=== PATIENT | female | born 1985 | race Caucasian/White ===

== ENCOUNTER 2023-12-22 17:14 | Observation (INO) ==
--- NOTE | 2023-12-22 17:20 | ED Triage Note ---
Date of Service December 22, 2023 Provider in Triage Author: Miah Holm History of Present Illness This patient was briefly evaluated while in triage. An abbreviated physical exam was performed. This patient is a 38-year-old Female who presents to the ED for evaluation of: Chest heavy, and pain in back under shoulder blade. Started over the past week and has aortic aneurysm. Dyspnea as well. Physical Exam GENERAL: 38 year old female. In no acute distress. SKIN: No lesions or rashes. HEART: Regular rate and rhythm. LUNGS: Clear to auscultation. NEURO: Alert and oriented. No deficits. MUSCULOSKELETAL: No deformities to inspection of the extremities. PSYCH: Patient is pleasant and answers all questions appropriately. Initial orders for labs and / or imaging were placed and patient was placed in the waiting area until a bed is available. Please see further documentation for the full ED course.
--- NOTE | 2023-12-22 19:18 | Emergency Department Note ---
History of Present Illness General Chief complaint: Cardiac Assessment Stated complaint: HEAVY CHEST/PAIN, SOB Time Seen by Provider: 12/22/23 19:09 History of Present Illness Maximum Pain Intensity: 4 This is a 38-year-old female that presents to the emergency department via private vehicle with complaints of "heaviness in the chest,/pain into back, shortness of breath". Patient notes that for the past week she has been experiencing pain in her chest that radiates to her back. It is worse with exertion. She notes an outpatient echocardiogram performed in [place] this past Friday. She states she was diagnosed with an aneurysm but is unable to provide any further details. She notes about 5 years ago history of intubation in [place] secondary to septic shock. No history of PE. She notes that the pain is central and about 4 out of 10 at the present time. Home Medications Medication Instructions Recorded Confirmed Type carvedilol 6.25 mg tablet 6.25 mg PO BID 12/22/23 12/22/23 History cholecalciferol (vitamin D3) 25 1,000 mcg PO DAILY 12/22/23 12/22/23 History mcg (1,000 unit) capsule (Vitamin D3) ferrous sulfate 325 mg (65 mg 325 mg PO BID 12/22/23 12/23/23 History iron) tablet (FeroSul) fluticasone furoate 100 1 inh inhalation DAILY 12/22/23 12/22/23 History mcg-vilanterol 25 mcg/dose inhalation powder folic acid 1 mg tablet 1 mg PO DAILY 12/22/23 12/22/23 History melatonin 10 mg tablet 10 mg PO DAILY 12/22/23 12/22/23 History sertraline 50 mg tablet 50 mg PO DAILY 12/22/23 12/22/23 History albuterol sulfate 2.5 mg/3 mL 2.5 mg continuous nebulization Q4 12/23/23 12/23/23 History (0.083 %) solution for nebulization PRN Wheezing cyanocobalamin (vitamin B-12) 1,000 mcg IM MONTHLY 12/23/23 12/23/23 History 1,000 mcg/mL injection solution furosemide 20 mg tablet 20 mg PO DAILY PRN Edema 12/23/23 12/23/23 History magnesium oxide 400 mg (241.3 mg 400 mg PO DAILY 12/23/23 12/23/23 History magnesium) tablet pantoprazole 40 mg tablet,delayed 40 mg PO DAILY 12/23/23 12/23/23 History release potassium chloride 20 mEq 20 meq PO DAILY 12/23/23 12/23/23 History tablet,extended release(part/cryst) spironolactone 25 mg tablet 25 mg PO DAILY 12/23/23 12/23/23 History Allergies Allergy/AdvReac Type Severity Reaction Status Date / Time No Known Allergies Allergy Unverified 12/23/23 09:19 Past Med/Surg History Medical History (Updated 12/23/23 @ 12:17 by Norberto Mccall PA-C) HTN (hypertension) History of anemia Lymphedema R leg Surgical History (Updated 12/23/23 @ 04:00 by Julia Cano DO) H/O gastric bypass Social History Smoking Status: Never smoker Hx Alcohol Use: Yes Hx Substance Use: No Preferred Language: [place] Communication Ability: Effective Functional Manager Required: No Beliefs That Will Affect Care: None Current Living Situation: Family Feels Safe at Home: Yes Safety Concerns: Feels Safe At This Time Assistive Devices: None Review of Systems A total of 10 systems reviewed and were otherwise negative Physical Exam Vital Signs Vital Signs - 24 hr 12/22/23 17:19 12/22/23 19:05 12/22/23 19:05 Temperature 36.7 C Temperature Source Temporal Artery Scan Pulse Rate 84 Pulse Rate [Apical] 73 Pulse Rate from SpO2 Sensor Pulse Rhythm Regular Pulse Rhythm [Apical] Regular Pulse Strength Normal Pulse Strength [Apical] Normal Respiratory Rate 20 20 Respiratory Effort / Characteristics Non-Labored Spontaneous Non-Labored Spontaneous Respiratory Depth Normal Normal Respiratory Pattern Regular Regular Blood Pressure 157/108 H Blood Pressure [Right Arm] 145/117 H Blood Pressure Mean 124 Blood Pressure Mean [Right Arm] 126 Blood Pressure Position Sitting Pulse Oximetry 99 91 98 Oxygen Delivery Method Room Air Room Air Room Air Sepsis Recent Fever Within 48 Hours No Sepsis New/Unexplained Change in Mental Status No Sepsis Action Taken by Nursing No Action Required 12/22/23 19:10 12/22/23 20:10 12/22/23 20:20 Temperature Temperature Source Pulse Rate 73 72 71 Pulse Rate [Apical] Pulse Rate from SpO2 Sensor 73 68 Pulse Rhythm Regular Pulse Rhythm [Apical] Pulse Strength Pulse Strength [Apical] Respiratory Rate 19 21 20 Respiratory Effort / Characteristics Respiratory Depth Respiratory Pattern Blood Pressure Blood Pressure [Right Arm] Blood Pressure Mean Blood Pressure Mean [Right Arm] Blood Pressure Position Pulse Oximetry 97 96 95 Oxygen Delivery Method Room Air Sepsis Recent Fever Within 48 Hours Sepsis New/Unexplained Change in Mental Status Sepsis Action Taken by Nursing 12/22/23 20:30 12/22/23 20:32 12/22/23 20:32 Temperature Temperature Source Pulse Rate 72 76 Pulse Rate [Apical] Pulse Rate from SpO2 Sensor 73 74 Pulse Rhythm Pulse Rhythm [Apical] Pulse Strength Pulse Strength [Apical] Respiratory Rate 25 H 19 Respiratory Effort / Characteristics Respiratory Depth Respiratory Pattern Blood Pressure 114/75 Blood Pressure [Right Arm] Blood Pressure Mean 79 Blood Pressure Mean [Right Arm] Blood Pressure Position Pulse Oximetry 97 96 Oxygen Delivery Method Sepsis Recent Fever Within 48 Hours Sepsis New/Unexplained Change in Mental Status Sepsis Action Taken by Nursing 12/22/23 20:40 12/22/23 21:38 12/22/23 21:39 Temperature Temperature Source Pulse Rate 70 82 Pulse Rate [Apical] Pulse Rate from SpO2 Sensor 70 75 Pulse Rhythm Pulse Rhythm [Apical] Pulse Strength Pulse Strength [Apical] Respiratory Rate 18 12 Respiratory Effort / Characteristics Respiratory Depth Respiratory Pattern Blood Pressure 142/105 H 142/105 H Blood Pressure [Right Arm] Blood Pressure Mean 117 113 Blood Pressure Mean [Right Arm] Blood Pressure Position Pulse Oximetry 94 95 Oxygen Delivery Method Sepsis Recent Fever Within 48 Hours Sepsis New/Unexplained Change in Mental Status Sepsis Action Taken by Nursing 12/22/23 21:39 12/22/23 21:40 12/22/23 21:49 Temperature Temperature Source Pulse Rate 74 74 71 Pulse Rate [Apical] Pulse Rate from SpO2 Sensor 75 75 Pulse Rhythm Pulse Rhythm [Apical] Pulse Strength Pulse Strength [Apical] Respiratory Rate 24 16 Respiratory Effort / Characteristics Respiratory Depth Respiratory Pattern Blood Pressure Blood Pressure [Right Arm] Blood Pressure Mean Blood Pressure Mean [Right Arm] Blood Pressure Position Pulse Oximetry 95 95 Oxygen Delivery Method Sepsis Recent Fever Within 48 Hours Sepsis New/Unexplained Change in Mental Status Sepsis Action Taken by Nursing 12/22/23 21:50 12/22/23 22:00 12/22/23 22:00 Temperature Temperature Source Pulse Rate 72 71 Pulse Rate [Apical] Pulse Rate from SpO2 Sensor 72 72 Pulse Rhythm Pulse Rhythm [Apical] Pulse Strength Pulse Strength [Apical] Respiratory Rate 17 19 Respiratory Effort / Characteristics Respiratory Depth Respiratory Pattern Blood Pressure 96/61 L Blood Pressure [Right Arm] Blood Pressure Mean 75 Blood Pressure Mean [Right Arm] Blood Pressure Position Pulse Oximetry 93 96 Oxygen Delivery Method Sepsis Recent Fever Within 48 Hours Sepsis New/Unexplained Change in Mental Status Sepsis Action Taken by Nursing 12/22/23 22:10 12/22/23 22:20 12/22/23 22:30 Temperature Temperature Source Pulse Rate 76 77 Pulse Rate [Apical] Pulse Rate from SpO2 Sensor 76 75 Pulse Rhythm Pulse Rhythm [Apical] Pulse Strength Pulse Strength [Apical] Respiratory Rate 20 19 Respiratory Effort / Characteristics Respiratory Depth Respiratory Pattern Blood Pressure 122/78 Blood Pressure [Right Arm] Blood Pressure Mean 87 Blood Pressure Mean [Right Arm] Blood Pressure Position Pulse Oximetry 93 94 Oxygen Delivery Method Sepsis Recent Fever Within 48 Hours Sepsis New/Unexplained Change in Mental Status Sepsis Action Taken by Nursing 12/22/23 22:30 12/22/23 22:40 12/22/23 22:50 Temperature Temperature Source Pulse Rate 79 77 78 Pulse Rate [Apical] Pulse Rate from SpO2 Sensor 80 76 78 Pulse Rhythm Pulse Rhythm [Apical] Pulse Strength Pulse Strength [Apical] Respiratory Rate 19 17 19 Respiratory Effort / Characteristics Respiratory Depth Respiratory Pattern Blood Pressure Blood Pressure [Right Arm] Blood Pressure Mean Blood Pressure Mean [Right Arm] Blood Pressure Position Pulse Oximetry 94 95 93 Oxygen Delivery Method Sepsis Recent Fever Within 48 Hours Sepsis New/Unexplained Change in Mental Status Sepsis Action Taken by Nursing 12/22/23 23:00 12/22/23 23:00 12/22/23 23:30 Temperature Temperature Source Pulse Rate 77 74 Pulse Rate [Apical] Pulse Rate from SpO2 Sensor Pulse Rhythm Pulse Rhythm [Apical] Pulse Strength Pulse Strength [Apical] Respiratory Rate 18 16 Respiratory Effort / Characteristics Respiratory Depth Respiratory Pattern Blood Pressure 132/88 133/74 Blood Pressure [Right Arm] Blood Pressure Mean 105 93 Blood Pressure Mean [Right Arm] Blood Pressure Position Pulse Oximetry Oxygen Delivery Method Sepsis Recent Fever Within 48 Hours Sepsis New/Unexplained Change in Mental Status Sepsis Action Taken by Nursing VITAL SIGNS - Vital signs and nursing notes were reviewed. Hypertensive, otherwise stable. GENERAL -38-year-old female appearing her stated age who is in no acute distress. Communicates well with provider and answers questions appropriately. SKIN - Without rashes. HEAD - NC/AT. EYES - PERRL with EOMI bilaterally. Sclera anicteric. Palpebral conjunctiva pink and moist with no injection noted. EARS - No deformities of external structures noted on gross examination bilaterally. NOSE - Midline and without cyanosis. MOUTH/OROPHARYNX - Without perioral cyanosis. NECK - Neck with FROM. No nuchal rigidity. LUNGS - Chest wall symmetric without accessory muscle use, intercostals retractions, or central cyanosis. Normal vesicular breath sounds CTA B/L. No wheezes, rales, or rhonchi appreciated. CARDIAC - RRR with S1/S2. No murmur, rubs, or gallops appreciated. EXTREMITIES - No clubbing or peripheral cyanosis. Lower ext edema noted. +5/5 strength noted in UE/LE bilaterally. NEUROLOGIC - Cranial nerves II through XII grossly intact. PSYCH -alert, oriented and pleasant on exam. Course Administered Medications Carvedilol (Carvedilol 6.25 Mg Tab) 6.25 mg PO BID [facility] Stop: 01/22/24 08:59 Last Admin: 12/23/23 08:38 Dose: 6.25 mg Documented By: HORACE Ferrous Sulfate (Ferrous Sulfate 325 Mg Tab) 325 mg PO QAM [facility] Stop: 01/22/24 08:59 Last Admin: 12/23/23 08:39 Dose: 325 mg Documented By: HORACE Fluticasone/Vilanterol (Fluticasone/Vilanterol 100/25mcg 14 Puffs/Inhaler) 1 puffs INH DAILY [facility] Stop: 01/22/24 08:59 Last Admin: 12/23/23 08:39 Dose: 1 puffs Documented By: HORACE Folic Acid (Folic Acid 1 Mg Tab) 1 mg PO DAILY [facility] Stop: 01/22/24 08:59 Last Admin: 12/23/23 08:40 Dose: 1 mg Documented By: HORACE Ceftriaxone Sodium 2,000 mg/ (Dextrose) 50 mls @ 100 mls/hr IV Q24H [facility]; Protocol Stop: 12/28/23 08:59 Last Infusion: 12/23/23 09:12 Dose: Infused Documented By: Admin: 12/23/23 08:39 Dose: 100 mls/hr Documented By: HORACE Pantoprazole Sodium (Pantoprazole 40 Mg Tab) 40 mg PO DAILY [facility] Stop: 01/22/24 08:59 Last Admin: 12/23/23 08:38 Dose: 40 mg Documented By: HORACE Sertraline HCl (Sertraline Hcl 50 Mg Tablet) 50 mg PO DAILY [facility] Stop: 01/22/24 08:59 Last Admin: 12/23/23 08:39 Dose: 50 mg Documented By: HORACE Spironolactone (Spironolactone 25 Mg Tab) 25 mg PO QAM [facility] Stop: 01/22/24 08:59 Last Admin: 12/23/23 08:39 Dose: 25 mg Documented By: HORACE Discontinued Medications Ceftriaxone Sodium (Rocephin) 2,000 mg in 50 mls @ 100 mls/hr IV NOW STA Stop: 12/22/23 23:15 Last Infusion: 12/23/23 00:00 Dose: Infused Documented By: Admin: 12/22/23 22:55 Dose: 100 mls/hr Documented By: BROOKS Ioversol (Optiray 320 125ml) 118 ml IV ONCE ONE Stop: 12/22/23 21:17 Last Admin: 12/22/23 21:18 Dose: 118 ml Documented By: JOSSE Medical Decision Making Laboratory Data 12/23/23 01:53 12/23/23 01:53 Lab Results 12/22/23 12/22/23 12/22/23 Range/Units 19:10 19:15 22:51 WBC 11.38 H (4.8-10.8) K/ul RBC 5.27 (4.20-5.40) M/uL Hgb 14.9 (12.0-16.0) g/dl Hct 47.0 (37.0-47.0) % MCV 89.2 (80.0-100.0) fL MCH 28.3 (25.0-34.0) pg MCHC 31.7 L (32.0-36.0) g/dL RDW Std Deviation 52.1 H (36.4-46.3) fL RDW Coeff of Tony 15.9 H (11.5-14.5) % Plt Count 215 (130-400) K/uL MPV 11.4 (9.4-12.4) fL Immature Gran % (Auto) 0.3 % Neut % (Auto) 62.3 % Lymph % (Auto) 23.6 % Porter % (Auto) 10.3 % Eos % (Auto) 3.1 % Baso % (Auto) 0.4 % Neut # (Auto) 7.11 H (1.40-6.50) K/uL Lymph # (Auto) 2.68 (1.20-3.40) K/uL Porter # (Auto) 1.17 H (0.11-0.59) K/uL Eos # (Auto) 0.35 (0.00-0.50) K/uL Baso # (Auto) 0.04 (0.00-0.20) K/uL Immature Gran # (Auto) 0.03 (0.01-0.20) K/uL PT 10.6 (9.0-12.0) Seconds INR 1.0 (0.9-1.1) APTT 25 (21-31) Seconds PTT Ratio 0.9 Sodium 139 (136-145) mmol/L Potassium 3.8 (3.5-5.1) mmol/L Chloride 107 (98-107) mmol/L Carbon Dioxide 27 (21-32) mmol/L Anion Gap 5 (3-11) BUN 16 (6-23) mg/dl Creatinine 0.93 (0.6-1.2) mg/dl Est Cr Clr Drug Dosing 139.2 ml/min Est GFR ( Amer) 89.7 ml/min Est GFR (Non-Af Amer) 77.4 ml/min BUN/Creatinine Ratio 17.2 (10-20) Glucose 71 (70-99(Fasting)) mg/dl Calcium 9.1 (8.6-10.3) mg/dl Magnesium 1.8 (1.7-2.4) mg/dl Total Bilirubin 0.3 (0.2-1.0) mg/dl AST 15 (13-39) U/L ALT 14 (7-52) U/L Alkaline Phosphatase 35 (34-104) U/L Troponin I High Sens 5.0 5.0 (0-14) pg/ml Total Protein 7.6 (6.0-8.3) gm/dl Albumin 4.1 (3.4-5.0) gm/dl Globulin 3.5 (2.5-4.0) gm/dl Albumin/Globulin Ratio 1.2 (0.9-2) Lipase 8 L (11-82) U/L TSH 2.143 (0.300-4.500) uIu/ml HCG, Qual Negative (Negative) Urine Color Yellow Urine Appearance Turbid A (Clear) Urine pH 6.0 (4.5-7.5) Ur Specific [place] 1.022 (1.000-1.030) Urine Protein Trace H (Negative) Urine Glucose (UA) Negative (Negative) Urine Ketones Negative (Negative) Urine Blood Trace H (Negative) Urine Nitrite Negative (Negative) Urine Bilirubin Negative (Negative) Urine Urobilinogen Negative (Negative) Ur Leukocyte Esterase 3+ H (Negative) Urine WBC (Auto) >50 H (0-5) /hpf Urine RBC (Auto) 0-2 (0-2) /hpf U Hyaline Cast (Auto) 0-2 (0-2) /lpf U Epithel Cells (Auto) >20 H (0-2) /hpf Urine Bacteria (Auto) 3+ H (None Seen) Imaging Data Radiologist's Impression: Exam(s): CTA CHEST W/WO Contrast IV Amt: 118 ml opti 320 EXAM: CT Angiography Chest Without and With Intravenous Contrast CLINICAL HISTORY: Reason for exam: Chest pain into back, hx of aneurysm. TECHNIQUE: Axial computed tomographic angiography images of the chest without and with intravenous contrast. CTDI is 80.37 mGy and DLP is 2106.69 mGy-cm. Automated exposure control was utilized for the study. A dose lowering technique was utilized adhering to the principles of ALARA. MIP reconstructed images were created and reviewed. CONTRAST: Patient received 118 ml opti 320 of IV contrast COMPARISON: No relevant prior studies available. FINDINGS: Pulmonary arteries: The pulmonary arterial tree is well opacified with contrast. No pulmonary embolism is identified. There is mild fusiform dilation of the main pulmonary artery measuring 4.5 cm in diameter which can be associated with pulmonary artery hypertension. Aorta: The thoracic aorta is nondilated. There is no aneurysm or dissection. Lungs: Unremarkable. No mass. No consolidation. Pleural space: Unremarkable. No significant effusion. No pneumothorax. Heart: The heart is upper normal in size. Trace pericardial effusion measuring 7 mm anteriorly. No evidence of RV dysfunction. Bones/joints: Mild multilevel degenerative changes throughout the spine. No fracture or bone lesion is identified. No dislocation. Soft tissues: Unremarkable. Lymph nodes: Unremarkable. No enlarged lymph nodes. Gallbladder and bile ducts: Previous cholecystectomy. Stomach and bowel: Previous gastric bypass surgery. IMPRESSION: 1. The pulmonary arterial tree is well opacified with contrast. No pulmonary embolism is identified. There is mild fusiform dilation of the main pulmonary artery measuring 4.5 cm in diameter which can be associated with pulmonary artery hypertension. 2. The thoracic aorta is nondilated. There is no aneurysm or dissection. Electronically signed by: Ravi Cano MD 12/22/23 22:15 PM MDM Narrative Patient was seen and evaluated as above in room C06. Review was performed of triage nursing notes and vital signs. I did review pertinent previous visits and patient history. After obtaining a thorough history and physical examination the above work up was performed. Patient presents to us today with chest heaviness/pain, shortness of breath. She states she has recent diagnosis of aneurysm based on echocardiogram she notes performed in [place] this past Friday but is unable to provide any further details. I do not have any details from that visit/evaluation at the present time. Options of care were discussed with the patient. IV access was established. Labs were drawn. EKG was obtained. EKG reveals normal sinus rhythm at a rate of 75 bpm. QTc 417. QRS 90. No ST elevation. There is no leukocytosis or concerning anemia. No emergent metabolic disturbance. Troponin negative. hCG negative. TSH reveals euthyroid state. Lipase is not elevated. Urinalysis reveals concern for UTI. IV antibiotics were administered for the UTI. CTA was performed of the chest. No PE. No dilation of the aorta. No aneurysm. No dissection. There is fusiform dilation of the main pulmonary artery measuring 4.5 cm. Noting the patient's exertional chest heaviness radiating to her back with associated dyspnea and comorbidities at this time do recommend proceeding with inpatient management for further evaluation. Patient amenable to this plan. Case discussed with the hospitalist service. Please refer to further documentation regarding her stay. GCS: 15 In the evaluation and treatment of this patient, the following differential diagnoses were considered: HI, ASC, Dysrhythmia, Angina, Mediastinitis, dissection, GERD, Esophagitis, PE, Pneumonia, Bronchitis, Costochondritis, Rib Fracture, Zoster, among others. Impression & Plan Chest pain, UTI (urinary tract infection) Discharge Plan Visit Data Chief Complaint: Cardiac Assessment Stated Complaint: HEAVY CHEST/PAIN, SOB ED Provider: Miah Holm ED Midlevel Provider: Norberto Mccall Discharge Problem: Chest pain, UTI (urinary tract infection) Patient Disposition: Admitted As Inpatient Condition: Good Discharge Instructions Interventions: ED Discharge Assessment Last Done: 12/23/23 01:23
[2023-12-22 19:39] LABS: Appearance Urine Turbid (Clear); Bacteria Urine Automated 3+ (None Seen); Bilirubin Urine Negative (Negative); Blood Urine Trace (Negative); Cast Urine Automated 0-2 /lpf (0-2); Color Urine Yellow; Epithelial Cell Urine Auto >20 /hpf (0-2); Glucose Urine UA Negative (Negative); Ketones Urine Negative (Negative); Leukocyte Esterase Urine 3+ (Negative); Nitrite Urine Negative (Negative); Protein Urine Trace (Negative); RBC Urine Automated 0-2 /hpf (0-2); Specific Gravity Urine 1.022 (1.000-1.030); Urobilinogen Urine Negative (Negative); WBC Urine Automated >50 /hpf (0-5)
[2023-12-22 19:50] LABS: Basophils # (auto) 0.04 K/uL (0.00-0.20); Basophils % (auto) 0.4 %; Eosinophils # (auto) 0.35 K/uL (0.00-0.50); Eosinophils % (auto) 3.1 %; Hemoglobin 14.9 g/dl (12.0-16.0); Immature Granulocytes # (auto) 0.03 K/uL (0.01-0.20); Immature Granulocytes % (auto) 0.3 %; Lymphocytes # (auto) 2.68 K/uL (1.20-3.40); Lymphocytes % (auto) 23.6 %; Mean Corpuscular Hemoglobin 28.3 pg (25.0-34.0); Mean Corpuscular Hgb Conc 31.7 g/dL (32.0-36.0); Mean Corpuscular Volume 89.2 fL (80.0-100.0); Mean Platelet Volume 11.4 fL (9.4-12.4); Monocytes # (auto) 1.17 K/uL (0.11-0.59); Monocytes % (auto) 10.3 %; Neutrophils # (auto) 7.11 K/uL (1.40-6.50); Neutrophils % (auto) 62.3 %; Platelet Count 215 K/uL (130-400); RDW Coefficient of Variation 15.9 % (11.5-14.5); RDW Standard Deviation 52.1 fL (36.4-46.3); Red Blood Count 5.27 M/uL (4.20-5.40); White Blood Count 11.38 K/ul (4.8-10.8)
[2023-12-22 19:57] LABS: Pregnancy Test, Serum Negative (Negative)
[2023-12-22 20:05] LABS: Albumin Globulin Ratio 1.2 (0.9-2); Albumin Level 4.1 gm/dl (3.4-5.0); BUN Creatinine Ratio 17.2 (10-20); Bilirubin,Total 0.3 mg/dl (0.2-1.0); Calcium 9.1 mg/dl (8.6-10.3); Creatinine Clr Calc Pharmacy 139.2 ml/min; Est GFR (African American) 89.7 ml/min; Est GFR (Non-African American) 77.4 ml/min; Globulin 3.5 gm/dl (2.5-4.0); Magnesium 1.8 mg/dl (1.7-2.4); Potassium 3.8 mmol/L (3.5-5.1); Total Protein 7.6 gm/dl (6.0-8.3)
[2023-12-22 20:17] LABS: Partial Thromboplastin Ratio 0.9; Partial Thromboplastin Time 25 Seconds (21-31); Prothrombin Time 10.6 Seconds (9.0-12.0)
[2023-12-22 20:20] LABS: Thyroid Stimulating Hormone 2.143 uIu/ml (0.300-4.500)
[2023-12-22] MEDS: OPTIRAY 320 125ml IV ONE (21:18)
--- NOTE | 2023-12-22 22:16 | CT Scan Report ---
Exam(s): CTA CHEST W/WO Contrast IV Amt: 118 ml opti 320 EXAM: CT Angiography Chest Without and With Intravenous Contrast CLINICAL HISTORY: Reason for exam: Chest pain into back, hx of aneurysm. TECHNIQUE: Axial computed tomographic angiography images of the chest without and with intravenous contrast. CTDI is 80.37 mGy and DLP is 2106.69 mGy-cm. Automated exposure control was utilized for the study. A dose lowering technique was utilized adhering to the principles of ALARA. MIP reconstructed images were created and reviewed. CONTRAST: Patient received 118 ml opti 320 of IV contrast COMPARISON: No relevant prior studies available. FINDINGS: Pulmonary arteries: The pulmonary arterial tree is well opacified with contrast. No pulmonary embolism is identified. There is mild fusiform dilation of the main pulmonary artery measuring 4.5 cm in diameter which can be associated with pulmonary artery hypertension. Aorta: The thoracic aorta is nondilated. There is no aneurysm or dissection. Lungs: Unremarkable. No mass. No consolidation. Pleural space: Unremarkable. No significant effusion. No pneumothorax. Heart: The heart is upper normal in size. Trace pericardial effusion measuring 7 mm anteriorly. No evidence of RV dysfunction. Bones/joints: Mild multilevel degenerative changes throughout the spine. No fracture or bone lesion is identified. No dislocation. Soft tissues: Unremarkable. Lymph nodes: Unremarkable. No enlarged lymph nodes. Gallbladder and bile ducts: Previous cholecystectomy. Stomach and bowel: Previous gastric bypass surgery. IMPRESSION: 1. The pulmonary arterial tree is well opacified with contrast. No pulmonary embolism is identified. There is mild fusiform dilation of the main pulmonary artery measuring 4.5 cm in diameter which can be associated with pulmonary artery hypertension. 2. The thoracic aorta is nondilated. There is no aneurysm or dissection. Electronically signed by: Ravi Cano MD 12/22/23 22:15 PM
[2023-12-22] MEDS: cefTRIAXone SODIUM 2,000 MG/50 ML BAG IV STA (22:55)
--- NOTE | 2023-12-23 00:33 | Emergency Department Note ---
ED Visit Note I have personally evaluated this patient examined her and reviewed the pertinent labs and data. I have discussed the case with Norberto Mccall, the physician assistant store director and agree with the plan. Please refer to the PA note. This patient has had exertional chest pain. On my exam she is resting comfortably and has stable vital signs. Her workup thus far is negative in terms of her troponin and EKG. She has no evidence of aortic dissection. I do think she needs to be admitted/observed for further cardiac evaluation and workup .
--- NOTE | 2023-12-23 00:33 | History & Physical Report ---
Date of Service December 22, 2023 Assessment & Plan (1) Chest pain: Plan: Exertional, ongoing x 1.5 weeks. Troponin negative, EKG unremarkable. Risk factors include HTN, Obesity, likely family history -Observation to medical with telemetry -Trend troponin -Ordered exercise stress echo - patient reports that she walks her dogs and will be able to do a walking test (2) HTN (hypertension): Plan: Blood pressure well controlled -Continue Carvedilol and spironolactone -Monitor (3) UTI (urinary tract infection): Plan: Chronic. Afebrile, HD stable, non-toxic -Continue Ceftriaxone 2gm IV daily -Follow cultures (4) H/O gastric bypass: Plan: Chronic. Stable -Continue Iron supplementation History of Present Illness Chief Complaint: chest pain Primary Care Provider: TWIN Molina Turner Nielson is a 38yo female with history of HTN, Obesity and premature heart disease (mother in 40's had "heart issues" as did maternal grandfather) presenting with several weeks of chest discomfort. Patient reports substernal chest pressure with radiation into her back as well as some shortness of breath that occurs mostly with exertion - occasionally at rest. The discomfort lasts several minutes then resolves on its on. Has been occuring over the last 1.5 weeks. She also notes some increased SOB with walking up stairs. 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 No additional complaints In the ER she is afebrile, HD stable, NAD Troponin x 3 NEGATIVE EKG with no ischemic changes ER Course: Ceftriaxone Allergies Allergy/AdvReac Type Severity Reaction Status Date / Time No Known Allergies Allergy Unverified 12/22/23 20:17 Home Medications Medication Instructions Recorded Confirmed Type Protonix 40 mg PO DAILY 12/22/23 12/22/23 History carvedilol 6.25 mg tablet 6.25 mg PO BID 12/22/23 12/22/23 History cholecalciferol (vitamin D3) 25 1,000 mcg PO DAILY 12/22/23 12/22/23 History mcg (1,000 unit) capsule (Vitamin D3) ferrous sulfate 325 mg (65 mg 325 mg PO DAILY 12/22/23 12/22/23 History iron) tablet (FeroSul) fluticasone furoate 100 1 inh inhalation DAILY 12/22/23 12/22/23 History mcg-vilanterol 25 mcg/dose inhalation powder folic acid 1 mg tablet 1 mg PO DAILY 12/22/23 12/22/23 History melatonin 10 mg tablet 10 mg PO DAILY 12/22/23 12/22/23 History sertraline 50 mg tablet 50 mg PO DAILY 12/22/23 12/22/23 History spironolactone 25 mg PO DAILY 12/22/23 12/22/23 History Past Med/Surg History Medical History (Updated 12/23/23 @ 04:00 by Julia Cano DO) HTN (hypertension) History of anemia Lymphedema R leg Surgical History (Updated 12/23/23 @ 04:00 by Julia Cano DO) H/O gastric bypass Social History Smoking Status: Never smoker Hx Alcohol Use: Yes Hx Substance Use: No Preferred Language: Syriac Communication Ability: Effective [employer] Maker Required: No Beliefs That Will Affect Care: None Current Living Situation: Family Feels Safe at Home: Yes Safety Concerns: Feels Safe At This Time Assistive Devices: None Review of Systems Review of Systems: All systems reviewed & are unremarkable except as noted in HPI & below Physical Exam Physical Exam: General: patient resting comfortably, NAD, non-toxic in appearance, AA&O x 4 Skin: warm, dry, intact, no rashes or lesions HEENT: NC/AT, PERRL, EOMI, anicteric sclera, conjunctiva without injection, external ear normal to inspection and nontender, nares patent, moist mucus membranes, dentition intact, no oropharyngeal lesions, neck supple, trachea midline, no LAD, no thyromegaly, no JVD Heart: +S1/S2, regular, no m/r/g, no chest wall pain with palpation Lungs: equal air entry bilaterally, no rales/rhonchi/wheezes Abd: +BS, soft, NT/ND, no masses/organomegaly/ascites Ext: warm, 2+ pulses in UE/LE bilaterally, no clubbing/cyanosis, +Lymphedema of legs and arms bilaterally, no evidence of infection Neuro: nonfocal, patient AA&O x 4, speech intact, no facial droop, moving all extremities on command with equal strength 5/5 Results & Data Results & Data Vital Signs (Past 12 Hours) Vital Signs Temp Pulse Pulse Resp BP BP Pulse Ox 12/22/23 23:30 74 16 133/74 12/22/23 23:00 77 18 12/22/23 23:00 132/88 12/22/23 22:50 78 19 93 12/22/23 22:40 77 17 95 12/22/23 22:30 79 19 94 12/22/23 22:30 122/78 12/22/23 22:20 77 19 94 12/22/23 22:10 76 20 93 12/22/23 22:00 71 19 96 12/22/23 22:00 96/61 L 12/22/23 21:50 72 17 93 12/22/23 21:49 71 12/22/23 21:40 74 16 95 12/22/23 21:39 74 24 95 12/22/23 21:39 142/105 H 12/22/23 21:38 82 12 142/105 H 95 12/22/23 20:40 70 18 94 12/22/23 20:32 76 19 96 12/22/23 20:32 114/75 12/22/23 20:30 72 25 H 97 12/22/23 20:20 71 20 95 12/22/23 20:10 72 21 96 12/22/23 19:10 73 19 97 12/22/23 19:05 73 20 145/117 H 98 12/22/23 19:05 91 12/22/23 17:19 36.7 C 84 20 157/108 H 99 O2 Del Method 12/22/23 23:30 12/22/23 23:00 12/22/23 23:00 12/22/23 22:50 12/22/23 22:40 12/22/23 22:30 12/22/23 22:30 12/22/23 22:20 12/22/23 22:10 12/22/23 22:00 12/22/23 22:00 12/22/23 21:50 12/22/23 21:49 12/22/23 21:40 12/22/23 21:39 12/22/23 21:39 12/22/23 21:38 12/22/23 20:40 12/22/23 20:32 12/22/23 20:32 12/22/23 20:30 12/22/23 20:20 12/22/23 20:10 12/22/23 19:10 Room Air 12/22/23 19:05 Room Air 12/22/23 19:05 Room Air 12/22/23 17:19 Room Air Laboratory Results Laboratory Results WBC 8.76 K/ul (4.8-10.8) 12/23/23 01:53 RBC 4.67 M/uL (4.20-5.40) 12/23/23 01:53 Hgb 13.2 g/dl (12.0-16.0) 12/23/23 01:53 Hct 41.9 % (37.0-47.0) 12/23/23 01:53 MCV 89.7 fL (80.0-100.0) 12/23/23 01:53 MCH 28.3 pg (25.0-34.0) 12/23/23 01:53 MCHC 31.5 g/dL (32.0-36.0) L 12/23/23 01:53 RDW Std Deviation 51.7 fL (36.4-46.3) H 12/23/23 01:53 RDW Coeff of Tony 15.8 % (11.5-14.5) H 12/23/23 01:53 Plt Count 172 K/uL (130-400) 12/23/23 01:53 MPV 11.1 fL (9.4-12.4) 12/23/23 01:53 Immature Gran % (Auto) 0.3 % 12/22/23 19:15 Neut % (Auto) 62.3 % 12/22/23 19:15 Lymph % (Auto) 23.6 % 12/22/23 19:15 [place] % (Auto) 10.3 % 12/22/23 19:15 Eos % (Auto) 3.1 % 12/22/23 19:15 Baso % (Auto) 0.4 % 12/22/23 19:15 Neut # (Auto) 7.11 K/uL (1.40-6.50) H 12/22/23 19:15 Lymph # (Auto) 2.68 K/uL (1.20-3.40) 12/22/23 19:15 [place] # (Auto) 1.17 K/uL (0.11-0.59) H 12/22/23 19:15 Eos # (Auto) 0.35 K/uL (0.00-0.50) 12/22/23 19:15 Baso # (Auto) 0.04 K/uL (0.00-0.20) 12/22/23 19:15 Immature Gran # (Auto) 0.03 K/uL (0.01-0.20) 12/22/23 19:15 PT 10.6 Seconds (9.0-12.0) 12/22/23 19:15 INR 1.0 (0.9-1.1) 12/22/23 19:15 APTT 25 Seconds (21-31) 12/22/23 19:15 PTT Ratio 0.9 12/22/23 19:15 Sodium 139 mmol/L (136-145) 12/23/23 01:53 Potassium 3.9 mmol/L (3.5-5.1) 12/23/23 01:53 Chloride 109 mmol/L (98-107) H 12/23/23 01:53 Carbon Dioxide 26 mmol/L (21-32) 12/23/23 01:53 Anion Gap 4 (3-11) 12/23/23 01:53 BUN 14 mg/dl (6-23) 12/23/23 01:53 Creatinine 0.86 mg/dl (0.6-1.2) 12/23/23 01:53 Est Cr Clr Drug Dosing 150.5 ml/min 12/23/23 01:53 Est GFR ( Amer) 98.6 ml/min 12/23/23 01:53 Est GFR (Non-Af Amer) 85.1 ml/min 12/23/23 01:53 BUN/Creatinine Ratio 16.3 (10-20) 12/23/23 01:53 Glucose 96 mg/dl (70-99(Fasting)) 12/23/23 01:53 Calcium 8.6 mg/dl (8.6-10.3) 12/23/23 01:53 Magnesium 1.8 mg/dl (1.7-2.4) 12/22/23 19:15 Total Bilirubin 0.3 mg/dl (0.2-1.0) 12/22/23 19:15 AST 15 U/L (13-39) 12/22/23 19:15 ALT 14 U/L (7-52) 12/22/23 19:15 Alkaline Phosphatase 35 U/L (34-104) 12/22/23 19:15 Troponin I High Sens 4.3 pg/ml (0-14) 12/23/23 01:53 Total Protein 7.6 gm/dl (6.0-8.3) 12/22/23 19:15 Albumin 4.1 gm/dl (3.4-5.0) 12/22/23 19:15 Globulin 3.5 gm/dl (2.5-4.0) 12/22/23 19:15 Albumin/Globulin Ratio 1.2 (0.9-2) 12/22/23 19:15 Lipase 8 U/L (11-82) L 12/22/23 19:15 TSH 2.143 uIu/ml (0.300-4.500) 12/22/23 19:15 HCG, Qual Negative (Negative) 12/22/23 19:15 Urine Color Yellow 12/22/23 19:10 Urine Appearance Turbid (Clear) A 12/22/23 19:10 Urine pH 6.0 (4.5-7.5) 12/22/23 19:10 Ur Specific [place] 1.022 (1.000-1.030) 12/22/23 19:10 Urine Protein Trace (Negative) H 12/22/23 19:10 Urine Glucose (UA) Negative (Negative) 12/22/23 19:10 Urine Ketones Negative (Negative) 12/22/23 19:10 Urine Blood Trace (Negative) H 12/22/23 19:10 Urine Nitrite Negative (Negative) 12/22/23 19:10 Urine Bilirubin Negative (Negative) 12/22/23 19:10 Urine Urobilinogen Negative (Negative) 12/22/23 19:10 Ur Leukocyte Esterase 3+ (Negative) H 12/22/23 19:10 Urine WBC (Auto) >50 /hpf (0-5) H 12/22/23 19:10 Urine RBC (Auto) 0-2 /hpf (0-2) 12/22/23 19:10 U Hyaline Cast (Auto) 0-2 /lpf (0-2) 12/22/23 19:10 U Epithel Cells (Auto) >20 /hpf (0-2) H 12/22/23 19:10 Urine Bacteria (Auto) 3+ (None Seen) H 12/22/23 19:10 Impressions Chest CTA 12/22/23 17:20 Exam(s): CTA CHEST W/WO Contrast IV Amt: 118 ml opti 320 EXAM: CT Angiography Chest Without and With Intravenous Contrast CLINICAL HISTORY: Reason for exam: Chest pain into back, hx of aneurysm. TECHNIQUE: Axial computed tomographic angiography images of the chest without and with intravenous contrast. CTDI is 80.37 mGy and DLP is 2106.69 mGy-cm. Automated exposure control was utilized for the study. A dose lowering technique was utilized adhering to the principles of ALARA. MIP reconstructed images were created and reviewed. CONTRAST: Patient received 118 ml opti 320 of IV contrast COMPARISON: No relevant prior studies available. FINDINGS: Pulmonary arteries: The pulmonary arterial tree is well opacified with contrast. No pulmonary embolism is identified. There is mild fusiform dilation of the main pulmonary artery measuring 4.5 cm in diameter which can be associated with pulmonary artery hypertension. Aorta: The thoracic aorta is nondilated. There is no aneurysm or dissection. Lungs: Unremarkable. No mass. No consolidation. Pleural space: Unremarkable. No significant effusion. No pneumothorax. Heart: The heart is upper normal in size. Trace pericardial effusion measuring 7 mm anteriorly. No evidence of RV dysfunction. Bones/joints: Mild multilevel degenerative changes throughout the spine. No fracture or bone lesion is identified. No dislocation. Soft tissues: Unremarkable. Lymph nodes: Unremarkable. No enlarged lymph nodes. Gallbladder and bile ducts: Previous cholecystectomy. Stomach and bowel: Previous gastric bypass surgery. IMPRESSION: 1. The pulmonary arterial tree is well opacified with contrast. No pulmonary embolism is identified. There is mild fusiform dilation of the main pulmonary artery measuring 4.5 cm in diameter which can be associated with pulmonary artery hypertension. 2. The thoracic aorta is nondilated. There is no aneurysm or dissection. Electronically signed by: Ravi Cano MD 12/22/23 22:15 PM ECG Additional Comments: EKG with NSR at 75bpm, normal axis, RM=205, QRS=90, UXk=510 ,no acute ischemic changes PG Care Time/CCT Total # of Minutes Spent Total Time Spent with Patient: Total time spent is greater than 50% in coordination of care (as documented) at patient's floor/unit and/or counseling patient: Coding Level of Care Code 36371 INT INP/OBS CARE 255MIN Diagnoses Chest pain R07.9 HTN (hypertension) I10 UTI (urinary tract infection) N39.0 H/O gastric bypass Z98.84
[2023-12-23] MEDS ORDERED: ONDANSETRON INJ 2 MG/ML 2 ML VIAL IV PRN (01:22)
[2023-12-23] MEDS ORDERED: ACETAMINOPHEN 325 MG TAB PO PRN (01:22)
[2023-12-23 02:19] LABS: Hematocrit (blood only) 41.9 % (37.0-47.0); Hemoglobin 13.2 g/dl (12.0-16.0); Mean Corpuscular Hemoglobin 28.3 pg (25.0-34.0); Mean Corpuscular Hgb Conc 31.5 g/dL (32.0-36.0); Mean Corpuscular Volume 89.7 fL (80.0-100.0); Mean Platelet Volume 11.1 fL (9.4-12.4); Platelet Count 172 K/uL (130-400); RDW Coefficient of Variation 15.8 % (11.5-14.5); RDW Standard Deviation 51.7 fL (36.4-46.3); Red Blood Count 4.67 M/uL (4.20-5.40); White Blood Count 8.76 K/ul (4.8-10.8)
[2023-12-23 02:23] LABS: BUN Creatinine Ratio 16.3 (10-20); Calcium 8.6 mg/dl (8.6-10.3); Creatinine Clr Calc Pharmacy 150.5 ml/min; Est GFR (African American) 98.6 ml/min; Est GFR (Non-African American) 85.1 ml/min; Potassium 3.9 mmol/L (3.5-5.1)
[2023-12-23] MEDS: carvediloL 6.25 MG TAB PO SCH (08:38)
[2023-12-23] MEDS: PANTOprazole 40 MG TAB PO SCH (08:38)
[2023-12-23] MEDS: SERTRALINE HCL 50 MG TABLET PO SCH (08:39)
[2023-12-23] MEDS: SPIRONOLACTONE 25 MG TAB PO SCH (08:39)
[2023-12-23] MEDS: cefTRIAXone SODIUM 2,000 MG in DEXTROSE 5 % MINI-B 50 ML IV SCH (08:39)
[2023-12-23] MEDS: FERROUS SULFATE 325 MG TAB PO SCH (08:39)
[2023-12-23] MEDS: FLUTICASONE/VILANTEROL 100/25MCG 14 PUFFS/INHALER INH SCH (08:39)
[2023-12-23] MEDS: FOLIC ACID 1 MG TAB PO SCH (08:40)
[2023-12-23] MEDS ORDERED: SODIUM CHLORIDE 0.65% NA SOLN 45 ML (OCEAN) STA (16:29)
--- NOTE | 2023-12-23 16:39 | Discharge Summary ---
Date of Service December 23, 2023 Admission HPI Per Admitting Provider Turner Nielson is a 38yo female with history of HTN, Obesity and premature heart disease (mother in 40's had "heart issues" as did maternal grandfather) presenting with several weeks of chest discomfort. Patient reports substernal chest pressure with radiation into her back as well as some shortness of breath that occurs mostly with exertion - occasionally at rest. The discomfort lasts several minutes then resolves on its on. Has been occuring over the last 1.5 weeks. She also notes some increased SOB with walking up stairs. 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 No additional complaints In the ER she is afebrile, HD stable, NAD Troponin x 3 NEGATIVE EKG with no ischemic changes ER Course: Ceftriaxone Principal Diagnosis chest pain Discharge Exam head atraumatic neck supple chest CTA heart s1s2 regular abdomen soft, nt, nd, BS present extremities no clubbing , no cyanosis Discharge Data Allergies Allergy/AdvReac Type Severity Reaction Status Date / Time No Known Allergies Allergy Unverified 12/23/23 09:19 Consultations 12/22/23 23:20 ED Decision to Admit Stat Ordered Studies 12/22/23 17:20 CT angio chest dissec wo/w con Stat Hospital Course (1) Chest pain: Exertional, ongoing x 1.5 weeks. Troponin negative, EKG unremarkable. Risk factors include HTN, Obesity, likely family history -Observation to medical with telemetry -Trend troponin -Ordered exercise stress echo - patient reports that she walks her dogs and will be able to do a walking test stress test is negative as per conversation with floatman, has PFO, follow up on final report patient needs to follow up with floatman as outpatient , continue current meds (2) HTN (hypertension): Blood pressure well controlled -Continue Carvedilol and spironolactone -Monitor (3) UTI (urinary tract infection): Chronic. Afebrile, HD stable, non-toxic -Continue Ceftriaxone 2gm IV daily -Follow cultures (4) H/O gastric bypass: Chronic. Stable -Continue Iron supplementation Total Time Total Time Spent Total Time Spent (In Minutes): 35 Discharge Plan Discharge Items Patient Disposition: Home - Self-Care Reason For Visit: CHEST PAIN Discharge Diagnosis: chest pain Condition on Discharge: Good Activity: Resume your previous activity Non-emergency contact: Primary Care Provider and Women Designer Call non-emergency contact if: your symptoms worsen Follow-up/Referrals: Aris Mart MD [Physician] - (scheduled appointment in 2 weeks ) Sunny Schaffer CRNP [Primary Care Provider] - Diet: Heart Healthy Addtl Attending Provider Instructions: follow up with PCP, floatman Pending Studies at Discharge: Yes Studies:: stress test , preliminary results are negative, PFO Stand-Alone Forms: My [facility] [employer], Smoking Cessation Medications and DC Order Prescriptions: Continued carvedilol 6.25 mg tablet 6.25 mg PO BID ferrous sulfate [FeroSul] 325 mg (65 mg iron) tablet 325 mg PO BID folic acid 1 mg tablet 1 mg PO DAILY sertraline 50 mg tablet 50 mg PO DAILY cholecalciferol (vitamin D3) [Vitamin D3] 25 mcg (1,000 unit) capsule 1,000 mcg PO DAILY melatonin 10 mg Tablet 10 mg PO DAILY fluticasone furoate-vilanterol 100-25 mcg/dose blister with device 1 inh INHALATION DAILY albuterol sulfate 2.5 mg /3 mL (0.083 %) solution for nebulization 2.5 mg continuous nebulization Q4 PRN (Reason: Wheezing) spironolactone 25 mg Tablet 25 mg PO DAILY potassium chloride 20 mEq tablet,ER particles/crystals 20 meq PO DAILY magnesium oxide 400 mg (241.3 mg magnesium) tablet 400 mg PO DAILY pantoprazole 40 mg Tablet,Delayed Release (Dr/Ec) 40 mg PO DAILY cyanocobalamin (vitamin B-12) 1,000 mcg/mL solution 1,000 mcg IM MONTHLY furosemide 20 mg tablet 20 mg PO DAILY PRN (Reason: Edema) Discharge Orders: Discharge Order (Routine); Ordered 12/23/23 Ordered By: Juanis Suresh Admission Data Admit Date/Time: 12/22/23 23:49 Attending Provider: Juanis Suresh Admit Provider: Julia Cano Primary Care Provider: Sunny Schaffer Other Providers: Julia Cano Other Interventions: *Nursing Shift Assessment Last Done: 12/23/23 10:56 Coding Level of Care Code 35655 INP/OBS DISCH >30 MIN Diagnoses Chest pain R07.9 HTN (hypertension) I10 UTI (urinary tract infection) N39.0 H/O gastric bypass Z98.84
[2023-12-23] MEDS ORDERED: MELATONIN 3 MG TAB PO SCH (21:00)
--- NOTE | 2023-12-25 22:35 | Electrocardiogram Report ---
Test Reason : Blood Pressure : / mmHG Vent. Rate : 075 BPM Atrial Rate : 075 BPM P-R Int : 180 ms QRS Dur : 090 ms QT Int : 374 ms P-R-T Axes : 063 057 045 degrees QTc Int : 417 ms Normal sinus rhythm Normal ECG No previous ECGs available Confirmed by Aris Mart ([id number]) on 12/25/2023 10:35:15 PM Referred By: REFERRED SELF Confirmed By:Aris Mart
== END 2023-12-23 10:56 | disposition home or self-care (01) ==
LOC: ED 17:14 → EDINP 17:14 → SUATTDRO 23:49 → EDINP 12-23 01:23